=== PATIENT | male | born 1970 | race Caucasian/White ===

== ENCOUNTER 2016-10-27 16:59 | Emergency (ER) | payer OTHER ==
[2016-10-27] MEDS ORDERED: IPRATROPIUM/ALBUTEROL 0.5/3 MG 3 ML AMPUL.NEB INHALATION ONE (17:29)
[2016-10-27] MEDS ORDERED: predniSONE 10 MG TABLET PO ONE (18:17)
[2016-10-27] MEDS ORDERED: INHALER, ASSIST DEVICES 1 PKT EACH ONE (18:18)
[2016-10-27] MEDS ORDERED: ALBUTEROL HFA 1 INH INHALER INHALATION ONE (18:18)
[2016-10-27] MEDS ORDERED: LEVOFLOXACIN 250 MG TABLET ONE (18:18)
--- NOTE | 2016-10-27 19:09 | ER PHYSICIAN DOCUMENTATION ---
Physician Documentation [facility] Name:Abelardo Pineda Age:45 yrs Sex:Male :1970 Arrival Date:10/27/2016 Time:16:59 Bed4 Private MD: Esa Jin Disposition: 10/27/16 18:05 Discharged to Home/Self Care. Impression: Bronchospasm- Acute. - Condition is Good. - Discharge Instructions: BRONCHOSPASM (Adult). - Prescriptions for Levaquin 500 mg Oral - take 1 tablet by ORAL route once daily for 7 days; 6 tablet. Prednisone 20 mg Oral Tablet - take 3 tablet by ORAL route once daily for 5 days; 15 tablet. - Medical Reconciliation form form. - Follow up: Private Physician; When: As needed; Reason: Worsening of condition, Continuance of care. - Problem is an acute exacerbation. - Symptoms have improved. HPI: 10/28 07:40 This 45 yrs old Male presents to ER via Private Vehicle with complaints of be Productive Cough. 07:40 Onset: The symptom(s)/episode began/occurred gradually, last week. Severity of be symptoms: At their worst the symptoms were moderate, earlier today, in the emergency department the symptoms are unchanged. Modifying factors: The symptoms are alleviated by nothing, the symptoms are aggravated by nothing. Associated signs and symptoms: The patient has no apparent associated signs or symptoms. The patient has experienced similar episodes in the past, multiple times, and the symptoms today are exactly the same, to when the patient was apparently diagnosed with astma, Worried since he cleaned mouse dropping's recently that he may have hantavirus. Denies LEÓN, myalgias, delirium, F/C/N/V/D or rash. Historical: - Allergies: No known drug Allergies; - Home Meds: 1. loratadine oral - PMHx: None; - PSHx: None; - Ebola Screening: : Patient negative for fever greater than or equal to 101.5 degrees Fahrenheit, and additional compatible Ebola Virus Disease symptoms. Patient denies exposure to infectious person. Patient denies travel to an Ebola-affected area in the 21 days before illness onset. No symptoms or risks identified at this time. . - Immunization history: Pneumococcal vaccine is up to date, Flu Vaccine < 1 year. - Social history: Smoking status: Patient states was never smoker of tobacco. Patient uses alcohol only on a social basis. Patient/guardian denies using street drugs, IV drugs, marijuana. ROS: 07:40 Respiratory: Positive for cough, with no reported sputum, Negative for hemoptysis, be orthopnea, pleurisy, sputum production. 07:40 All other systems are negative. Exam: 07:40 Respiratory: Respirations: normal, Breath sounds: wheezing, that is mild, is heard be diffusely. 07:45 Neuro: Orientation: is normal. be Vital Signs: 10/27 17:08 BP 161 / 97 (auto/); sc1 17:08 Pulse 79; Resp 16; Temp 97.9; Pulse Ox 96% on R/A; sc1 MDM: 17:08 Patient medically screened. be 07 07:40 Differential Diagnosis: Bronchitis Asthma Exacerbation Viral Syndrome Pneumonia. Data be reviewed: vital signs, nurses notes, and as a result, I will administer steroids, prednisone, DuoNeb in ED, home with albuterol MDI/AeroChamber, and levofloxacin. Dispensed Medications: 10/27 17:15 Drug: DuoNeb (Albuterol 2.5 mg, Atrovent 0.5 mg); 3 ml; Route: Nebulizer; vt1 18:03 CANCELLED (Physician Discretion): predniSONE 40 mg PO once be Signatures: Filomena Salgado RN RN vt1 Esa Weiner MD MD be
--- NOTE | 2016-10-27 19:09 | ER NURSING DOCUMENTATION ---
Nurse's Notes [facility] Name:Abelardo Pineda Age:45 yrs Sex:Male :1970 Arrival Date:10/27/2016 Time:16:59 Bed4 Private MD: Diagnosis:Bronchospasm- Acute Presentation: 10/27 17:04 Acuity: YASIR 4 rh 17:09 Presenting complaint: Patient states: cough, wheezing, has yellow sputum off and for 12 sc1 days since cleaning garage that was full of mouse poop. Transition of care: Home. Notified ED Physician of patient's arrival and CC Dr. Weiner notified. 17:09 Method Of Arrival: Private Vehicle sc1 Triage Assessment: 17:12 General: Appears in no apparent distress, well developed, well nourished, well groomed, sc1 Behavior is cooperative, pleasant. Pain: Denies pain. Historical: - Allergies: No known drug Allergies; - Home Meds: 1. loratadine oral - PMHx: None; - PSHx: None; - Ebola Screening: : Patient negative for fever greater than or equal to 101.5 degrees Fahrenheit, and additional compatible Ebola Virus Disease symptoms. Patient denies exposure to infectious person. Patient denies travel to an Ebola-affected area in the 21 days before illness onset. No symptoms or risks identified at this time. . - Immunization history: Pneumococcal vaccine is up to date, Flu Vaccine < 1 year. - Social history: Smoking status: Patient states was never smoker of tobacco. Patient uses alcohol only on a social basis. Patient/guardian denies using street drugs, IV drugs, marijuana. Screenin:18 Infectious Disease Risk None. Abuse screen: Denies threats or abuse. Nutritional sc1 screening: No deficits noted. Vital Signs: 17:08 BP 161 / 97 (auto/); sc1 17:08 Pulse 79; Resp 16; Temp 97.9; Pulse Ox 96% on R/A; sc1 ED Course: 17:02 Patient arrived in ED. ama 17:04 Triage completed. rh 17:08 Esa Weiner MD is Attending Physician. be 17:09 Filomena Salgado, JONEL is Primary Nurse. sc1 17:13 Notified ED Physician of patient's arrival and chief complaint. Dr. Weiner. Arm band sc1 placed on Bed in low position Call Light in Reach Gowned HOB Elevated Side rails up x1. Administered Medications: 17:15 Drug: DuoNeb (Albuterol 2.5 mg, Atrovent 0.5 mg); 3 ml; Route: Nebulizer; mt1 18:03 CANCELLED (Physician Discretion): predniSONE 40 mg PO once be Outcome: 18:05 Discharge ordered by . be 19:09 Patient left the ED. [facility] [place] Signatures: Filomena Salgado RN RN mt1 Esa Weiner MD MD be Averdick, Andrew, Bárbara Corbett
== END 2016-10-27 19:09 | disposition home or self-care (01) ==
LOC: ER 16:59
DX: J98.01 Acute bronchospasm (principal)
CPT/HCPCS: 94640; 99283; J7512; J7611; J7620